=== PATIENT | female | born 1980 | race African-American/Black ===

== ENCOUNTER → 2024-04-12 10:38 | Outpatient (REF) | payer OTHER, SELFPAY | LOC: RAD 10:38 | PROVIDERS: ATTENDING PHYSICIAN Obstetrics & Gynecology; FAMILY PHYSICIAN Family Medicine | DX: N92.4 Excessive bleeding in the premenopausal period (principal); Z30.431 Encounter for routine checking of intrauterine contraceptive device; N84.0 Polyp of corpus uteri | CPT/HCPCS: 58340; 76830; 76831 ==

== ENCOUNTER → 2024-04-20 11:54 | Outpatient (REF) | payer OTHER, SELFPAY | LOC: RAD 11:54 | PROVIDERS: ATTENDING PHYSICIAN Obstetrics & Gynecology | DX: T83.32XA Displacement of intrauterine contraceptive device, initial encounter (principal) | CPT/HCPCS: 74018 ==

== ENCOUNTER 2024-05-03 06:26 | Day surgery (SDC) | payer OTHER, SELFPAY ==
[2024-04-23 13:15] VITALS: BMI 41.2
[2024-04-23 13:38] LABS: % Basophils 0.8 % (0-2); % Eosinophils 1.7 % (0-6); % Immature Granulocytes 0.2 % (0-0.5); % Lymphocytes 27.9 % (20.5-51.1); % Monocytes 8.1 % (1.7-9.3); % Neutrophils 61.3 % (42.2-75.2); Absolute Basophils 0.1 10^3/uL (0-0.2); Absolute Eosinophils 0.2 10^3/uL (0-0.7); Absolute Lymphocytes 2.5 10^3/uL (1.2-3.4); Absolute Monocytes 0.7 10^3/uL (0.1-0.6); Absolute Neutrophils 5.5 10^3/uL (1.4-6.5); Hemoglobin 11.2 g/dL (12.0-16.0); Mean Corpuscular Hgb 23.4 pg (27.0-31.0); Mean Corpuscular Volume 73.1 fL (81.0-99.0); Mean Platelet Volume 9.3 fL (7.4-10.4); Nucleated Red Blood Cells % 0 %; Platelet Count 273 10^3/uL (130-400); Red Blood Cell Count 4.79 10^6/uL (4.20-5.40); Red Cell Dist. Width 21.9 % (11.5-14.5); White Blood Cell Count 8.9 10^3/uL (4.8-10.8)
[2024-04-23 13:44] LABS: INR 1.11; PT 14.1 Sec (11.4-14.6)
[2024-04-23 13:45] LABS: APTT 26.9 Sec (23.4-35.0)
[2024-05-03] VITALS (8 sets, daily range): BP systolic 109–125; BP diastolic 63–86; BMI 41.2
[2024-05-03] MEDS: NORMOSOL-R 1000 IV (09:29)
== END 2024-05-03 12:51 | disposition home or self-care (01) ==
LOC: SDS 06:26
PROVIDERS: ATTENDING PHYSICIAN Obstetrics & Gynecology; FAMILY PHYSICIAN Family Medicine
DX: D25.9 Leiomyoma of uterus, unspecified (principal); N84.0 Polyp of corpus uteri; N93.9 Abnormal uterine and vaginal bleeding, unspecified; N92.0 Excessive and frequent menstruation with regular cycle
CPT/HCPCS: 58563; 88305; 36415; 85025; 85610; 85730

== ENCOUNTER 2024-07-20 06:12 | Day surgery (SDC) | payer OTHER, SELFPAY ==
[2024-07-09 08:39] VITALS: BMI 39.8
[2024-07-09 09:20] LABS: % Basophils 0.8 % (0-2); % Eosinophils 3.5 % (0-6); % Immature Granulocytes 0.3 % (0-0.5); % Lymphocytes 32.3 % (20.5-51.1); % Monocytes 8.2 % (1.7-9.3); % Neutrophils 54.9 % (42.2-75.2); Absolute Basophils 0.1 10^3/uL (0-0.2); Absolute Eosinophils 0.3 10^3/uL (0-0.7); Absolute Lymphocytes 2.3 10^3/uL (1.2-3.4); Absolute Monocytes 0.6 10^3/uL (0.1-0.6); Absolute Neutrophils 3.9 10^3/uL (1.4-6.5); Hematocrit 36.6 % (37.0-47.0); Hemoglobin 11.6 g/dL (12.0-16.0); Mean Corp Hgb Conc. 31.7 g/dL (33.0-37.0); Mean Corpuscular Hgb 24.9 pg (27.0-31.0); Mean Corpuscular Volume 78.5 fL (81.0-99.0); Mean Platelet Volume 9.7 fL (7.4-10.4); Nucleated Red Blood Cells % 0 %; Platelet Count 293 10^3/uL (130-400); Red Blood Cell Count 4.66 10^6/uL (4.20-5.40); Red Cell Dist. Width 17.6 % (11.5-14.5); White Blood Cell Count 7.1 10^3/uL (4.8-10.8)
[2024-07-09 10:12] LABS: Blood Urea Nitrogen 13 mg/dl (7-17); Calcium 9.1 mg/dl (8.4-10.2); Carbon Dioxide 21 mmol/L (22-30); Chloride 106 mmol/L (98-107); Estimated Creatinine Clearance 108 ml/min; Glucose 84 mg/dl (70-99); Potassium 4.4 mmol/L (3.5-5.1); Sodium 141 mmol/L (135-145); eGFR > 60.00
[2024-07-09 14:42] LABS: Beta HCG Quantitative < 2.39 mIU/ml
[2024-07-20] VITALS (12 sets, daily range): BP systolic 98–147; BP diastolic 47–93; BMI 39.4; BMI 39.8; BMI 39.5
[2024-07-20] MEDS: TYLENOL 1000 MG PO (06:33)
[2024-07-20] MEDS: HEPARIN 5000 UNITS SC (06:34)
[2024-07-20] MEDS: NORMOSOL-R/PLASMALYTE-A 1000 IV (07:01)
--- NOTE | 2024-07-20 10:07 | W.IMMPOSTOP ---
Surgical Immed Post Op Note
-
Primary Surgeon: Nadeen Clayton DO
Viner Operator: OTILIA Verdugo
Pre-op Diagnosis: Fibroid uterus, menorrhagia
Post-op Diagnosis: same
Procedure Performed: [facility] B/L salpingectomy and cystoscopy
Anesthesia Type: general ET Dr. Portillo
Specimen / Cultures: uterus, cervix and bilateral fallopian tubes
Estimated Blood Loss: 50ml
Urine output: 300ml clear yellow uirne when becerril d/c'd
IVF: 1500ml
Complications: none
Operative Findings: Bulky enlarged uterus with fibroids, normal appearing ovaries and tubes. Left paratubal cyst.
Cystoscopy: bilateral ureteral jets seen pulsing methylene blue. No evidence of trauma or suture.
Counts correct times 2.
Stable to recovery.
[2024-07-20] MEDS: ZOFRAN 4 MG IV ×2 (10:59→19:58)
[2024-07-20] MEDS: TORADOL 15 MG IV ×3 (12:14→23:30)
[2024-07-20] MEDS: NSS 1000 IV ×2 (12:14→19:56)
--- NOTE | 2024-07-20 12:48 | PTCARENOTE ---
Received pt from PACU post robotic total hysterectomy. Pt groggy but oriented x3. Five laparoscopy sites on abdomen clean and dry. Minimal scant bloody drainage from vagina. IV left hand NSS infusing at 125ml/hr. Toradol 15 mg given IV as ordered.
--- NOTE | 2024-07-20 13:09 | W.PN.OBG.DWH ---
Today's Communication / Plan
-
diet as veto
OOB
Postop analgesia
Labs in am
Anticipate dc tomorrow.
Assessment/Plan
-
Postop S/P RA TLH B/L salpingectomy
fibroids, menorrhagia
Cont postop care
SCDs while in bed
Diet as veto
Pain mgmt
Anticipate dc tomorrow.
Subjective Data
-
Postop check:
Patient feeling cramping. Adequate pain control. here.
Objective Data
-
Vital Signs
Temp Pulse Resp BP Pulse Ox
98.2 F 81 16 114/64 97
07/20/24 11:30 07/20/24 11:30 07/20/24 11:30 07/20/24 11:30 07/20/24 11:30
VSS afb
abd: soft +bs NDNT, incisions CDI
ext: no calf pain
no heavy vaginal bleeding
[2024-07-20 13:51] LABS: Hematocrit 32.8 % (37.0-47.0); Hemoglobin 10.5 g/dL (12.0-16.0)
[2024-07-20 14:06] LABS: Blood Urea Nitrogen 13 mg/dl (7-17); Carbon Dioxide 22 mmol/L (22-30); Chloride 106 mmol/L (98-107); Estimated Creatinine Clearance > 125 ml/min; Glucose 136 mg/dl (70-99); Potassium 3.9 mmol/L (3.5-5.1); Sodium 139 mmol/L (135-145); eGFR > 60.00
--- NOTE | 2024-07-20 14:27 | PTCARENOTE ---
Pt assisted OOB to BR. Pt passed 500 ml concentrated yellow urine without difficulty.
--- NOTE | 2024-07-20 14:37 | PTCARENOTE ---
Small amount of bloody vaginal drainage noted on rip pad
[2024-07-20] MEDS: LOVENOX 40 MG SC (17:32)
[2024-07-20] MEDS: COLACE 100 MG PO (23:29)
--- NOTE | 2024-07-21 01:20 | PTCARENOTE ---
IV capped @ 2350, patient tolerating po well
[2024-07-21 04:50] VITALS: BP 127/71
[2024-07-21] MEDS: NSS IV (04:51)
[2024-07-21] MEDS: TORADOL 15 MG IV (04:53)
[2024-07-21 05:13] LABS: % Basophils 0.2 % (0-2); % Eosinophils 0.1 % (0-6); % Immature Granulocytes 0.2 % (0-0.5); % Lymphocytes 27.2 % (20.5-51.1); % Monocytes 8.5 % (1.7-9.3); % Neutrophils 63.8 % (42.2-75.2); Absolute Lymphocytes 2.8 10^3/uL (1.2-3.4); Absolute Monocytes 0.9 10^3/uL (0.1-0.6); Absolute Neutrophils 6.7 10^3/uL (1.4-6.5); Hematocrit 28.9 % (37.0-47.0); Hemoglobin 9.6 g/dL (12.0-16.0); Mean Corp Hgb Conc. 33.2 g/dL (33.0-37.0); Mean Corpuscular Hgb 26.2 pg (27.0-31.0); Nucleated Red Blood Cells % 0 %; Platelet Count 271 10^3/uL (130-400); Red Blood Cell Count 3.66 10^6/uL (4.20-5.40); Red Cell Dist. Width 16.2 % (11.5-14.5); White Blood Cell Count 10.5 10^3/uL (4.8-10.8)
[2024-07-21 05:38] LABS: Blood Urea Nitrogen 9 mg/dl (7-17); Carbon Dioxide 21 mmol/L (22-30); Chloride 109 mmol/L (98-107); Estimated Creatinine Clearance 121 ml/min; Potassium 3.9 mmol/L (3.5-5.1); Sodium 142 mmol/L (135-145)
--- NOTE | 2024-07-21 07:19 | W.DS.TRANS ---
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
-
Discharge Instructions:
Sleep Apnea Risk Low
Discharge Diagnosis/Procedures menorrhagia; fibroids; s/p rorbotic laparoscopic
hysterectomy, bilateral salpingetomy
Diet Regular
Activity No strenuous activity
Driving Restrictions No driving for 1 week
Bathing Restrictions OK to Shower
Instructions:
Stand-Alone Forms:
Changes to Home Medications: No
Discharge Medications:
DC Medications w/original date entered in [facility]
oxymetazoline 0.05 % nasal spray (Afrin Sinus (oxymetazoline)) 2 spray intranasal Q12H PRN congestion 07/12/24
acetaminophen 325 mg tablet 650 mg (2 x 325 mg) PO Q4HPRN PRN mild pain #0 tabs 07/20/24
ferrous sulfate 325 mg (65 mg iron) tablet (FeroSul) 325 mg PO DAILY #0 tabs 07/20/24
ibuprofen 600 mg tablet 600 mg PO Q8H PRN pain 07/20/24
oxycodone 5 mg tablet 2.5 mg (1/2 x 5 mg) PO Q4HPRN PRN moderate pain #0 tabs 07/20/24
oxycodone 5 mg tablet 5 mg PO Q6HPRN PRN severe pain when tolerating PO #12 tabs 07/20/24
Home Medication Changes
Pending Results: Yes
Additional Pending Results:
surgical pathology
Total time spent discharging patient (in min): 25
--- NOTE | 2024-07-21 07:20 | W.PN.OBG.DWH ---
Today's Communication / Plan
-
dc home today.
RTO 2 wks
Assessment/Plan
-
POD#1 S/P RA TLH B/L salpingectomy for menorrhagia and fibroids
Stable and doing well.
Reviewed dc instructions
RTO 2 wks.
Subjective Data
-
POD#1
No complaints. Voiding well.
Tolerating diet
Adequate pain control.
Objective Data
-
Laboratory Results
07/21/24 04:54
07/21/24 04:54
Vital Signs
Temp Pulse Resp BP Pulse Ox
99.4 F 84 18 127/71 97
07/21/24 04:50 07/21/24 04:50 07/21/24 04:50 07/21/24 04:50 07/20/24 11:30
VSS afeb
cor regular rate
pulm: clear
abd: soft +bs NDNT inc cdi
no vaginal bleeding
ext: no calf pain
[2024-07-21] MEDS: COLACE 100 MG PO (07:47)
[2024-07-21] MEDS: FEOSOL 325 MG PO (07:47)
--- NOTE | 2024-07-21 08:22 | PTCARENOTE ---
pt 5 robotic incisions clean and intact. no drainage noted. pt comfortable. scant amount of red brown vaginal discharge noted
[2024-07-21 08:23] VITALS: BP 127/79
--- NOTE | 2024-07-21 10:33 | CM ---
Met with pt at bedside
Pt reports she lives with her and 2 sons in a ranch style home - no steps to enter
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
DME - none
SNF/HH - no past hx
Has ride home with at discharge
PCP - Gilles Canseco
Pharm - [facility]
Plan - anticipate home no needs
== END 2024-07-21 11:28 | disposition home or self-care (01) ==
LOC: SDS 06:12
PROVIDERS: ATTENDING PHYSICIAN Obstetrics & Gynecology; FAMILY PHYSICIAN Family Medicine
DX: D25.0 Submucous leiomyoma of uterus (principal); N83.8 Other noninflammatory disorders of ovary, fallopian tube and broad ligament; N92.0 Excessive and frequent menstruation with regular cycle; D64.9 Anemia, unspecified; N94.6 Dysmenorrhea, unspecified
CPT/HCPCS: 58573; 88307; 36415; 80048; 80051; 82565; 84520; 84702; 85014; 85018; 85025; 86850; 86900; 86901; 88341; 88342

== ENCOUNTER → 2024-11-20 08:04 | Outpatient (REF) | payer OTHER, SELFPAY | LOC: WDC 08:04 | PROVIDERS: ATTENDING PHYSICIAN Obstetrics & Gynecology; FAMILY PHYSICIAN Family Medicine | DX: Z12.31 Encounter for screening mammogram for malignant neoplasm of breast (principal) | CPT/HCPCS: 77063; 77067 ==